=== PATIENT | male | born 1975 | race Caucasian/White ===

== ENCOUNTER 2017-06-01 09:26 | Day surgery (SDC) | payer OTHER ==
[2017-06-01] VITALS (8 sets, daily range): BP systolic 106–137; BP diastolic 62–85; PULSE 63–84; RESP 14–20; Ht 180.3 cm; Wt 73.0 kg
[~2017-06-01] VITALS: Ht 180.3 cm; Wt 73.0 kg
[~2017-06-01 09:26] MED LIST: ONDANSETRON 4 MG INJ ONE
[2017-06-01] MEDS ORDERED: IBUP800T25 PO (09:51)
[2017-06-01 10:19] LABS: BASOPHIL # 0.1 10^3/ul (0.0-0.1); BASOPHILS % 1.3 % (0.0-2.0); EOSINOPHILS # 0.1 10^3/ul (0.0-0.5); EOSINOPHILS % 1.6 % (0.0-7.0); HEMATOCRIT 37.1 % (42.0-52.0); HEMOGLOBIN 12.9 g/dl (14.0-18.0); LYMPHOCYTES % 32.6 % (15.0-51.0); MEAN CORPUSCULAR HEMOGLOBIN 32.8 pg (29.0-33.0); MEAN CORPUSCULAR HGB CONC 34.8 g/dl (32.0-37.0); MEAN CORPUSCULAR VOLUME 94.4 fl (82.0-101.0); MEAN PLATELET VOLUME 11.4 fl (7.4-10.4); MONOCYTE # 0.5 10^3/ul (0.3-0.9); MONOCYTES % 7.5 % (0.0-11.0); NEUTROPHIL # 3.6 10^3/ul (1.6-7.5); PLATELET COUNT 203 10^3/UL (140-415); RED BLOOD COUNT 3.93 10^6/ul (4.70-6.10); RED CELL DISTRIBUTION WIDTH 11.9 % (11.5-14.5); WHITE BLOOD COUNT 6.3 10^3/ul (4.8-10.8)
[2017-06-01 10:41] LABS: INR 0.93; PROTIME 12.5 Sec (12.2-14.2)
[2017-06-01 10:42] LABS: PARTIAL THROMBOPLASTIN TIME 30.9 Sec (25.0-35.0)
[2017-06-01] MEDS ORDERED: BUPIVACAINE 0.5%/EPI (SDV) 30 ML INJ ONE (11:38)
[2017-06-01] MEDS ORDERED: BUPIVACAINE LIPOSOME/PF 266 MG/20 ML VIAL INFIL SCH (12:00)
[2017-06-01] MEDS ORDERED: morphine 2 MG INJ IV PRN (12:00)
[2017-06-01] MEDS ORDERED: ONDANSETRON 4 MG INJ IV PRN ×2 (12:00→13:00)
[2017-06-01] MEDS ORDERED: HYDROCODONE/APAP (5/325) TAB PO PRN (12:00)
[2017-06-01] MEDS ORDERED: ROCURONIUM 50 MG INJ ONE (12:03)
[2017-06-01] MEDS ORDERED: LIDOCAINE 2% (SDV) 5 ML INJ ONE (12:03)
[2017-06-01] MEDS ORDERED: PROPOFOL 20 ML ONE (12:03)
[2017-06-01] MEDS ORDERED: DEXAMETHASONE 4 MG/ML 1 ML INJ ONE (12:03)
--- NOTE | 2017-06-01 12:04 | OPR ---
Date/Time of Note Date/Time of Note DATE: 06/01/17 TIME: 11:53 Operative Report Free Text/Dictation Plastic Surgery Operative Report Preoperative diagnosis: neck melanoma Postoperative diagnosis: neck melanoma Procedure: excision of neck melanoma with flap reconstruction Surgeon: prateek Metzger.: n/a Anesthesia: general EBL: min IV fluids: per flow sheet Findings: n/a Complications: none Dispo: home Indications for procedure: 41 yo M presents for neck melanoma excision and flap reconstruction. The risks, benefits, alternatives of performing this procedure was discussed with the patient including the risks of bleeding, infection, wound healing problems, lesion recurrence, need for re-excision, and the patient states that he understands these risks and would like to proceed with the procedure. All questions were answered, no guarantees were given with regards to the outcome of the procedure. Description of procedure: A 0.5mm margin was marked around the lesion and then a total of 10cc of 0.25% marcaine with 1:200,000 epi were injected into the periphery of the incision. Next, the 15 blade was used to incise around the marked area, and then the electrocautery was used to dissect to the platysma and excise the specimen off the platysma. A short stitch was placed superior, a long stitch was placed left lateral. Specimen size was 7cm. Next, a superiorly based flap was designed to advance to take the tension off of the defect and closed without distorting surrounding tissues. This was marked with a marking pen and was then incised with a 15 blade. The flap was undermined with the electrocautery. The flap was then advanced into the defect. It sat in place without undue tension and a small back cut was made to facilitate advancement. Hemostasis was achieved with electrocautery. The wound was irrigated with antibiotic irrigation. Therefore, the flap was inset with 4-0 Vicryl sutures and 4-0 Monocryl sutures. 20cc of exparel were injected into the periphery of the incision to help with post op pain control. Total flap size was 7x3cm . The patient tolerated procedure well, there were no complications, follow-up information and wound care instructions were given Preoperative Diagnosis neck melanoma in situ Postoperative Diagnosis same Surgeon see signature line Bioinformatics Engineer n/a Anesthesia Type: general Estimated Blood Loss: minimal Transfusion none Specimen neck melanoma, short stitch superior, long stitch lateral Grafts/Implants none Complications none Procedure Description see free text LARISSA IRAHETA MD Jun 01, 2017 12:04
[2017-06-01] MEDS ORDERED: CEFAZOLIN 1 GM INJ ONE (12:10)
--- NOTE | 2017-06-01 12:46 | HPN ---
Date/Time of Note Date/Time of Note DATE: 06/01/17 TIME: 12:46 Interval H&P Admission Note Pt. seen H&P reviewed: No system changes LARISSA IRAHETA MD Jun 01, 2017 12:46
[2017-06-01] MEDS ORDERED: KETOROLAC 30 MG INJ IV PRN (13:00)
[2017-06-01] MEDS ORDERED: DIPHENHYDRAMINE 50 MG INJ IV PRN (13:00)
[2017-06-01] MEDS ORDERED: HYDROmorphONE (0.2 MG/ML) 10ML SYG IV PRN ×3 (13:00)
[2017-06-01] MEDS ORDERED: EPHEDrine SULFATE 50 MG/5 ML SYG IV PRN (13:00)
[2017-06-01] MEDS ORDERED: OXYCODONE/ACETAMINOPHEN (5/325) TAB PO PRN ×2 (13:00)
[2017-06-01] MEDS ORDERED: MEPERIDINE 25 MG INJ IV PRN (13:00)
[2017-06-01] MEDS ORDERED: METOCLOPRAMIDE 10 MG INJ IV PRN (13:00)
[2017-06-01] MEDS ORDERED: hydrALAzine 20 MG INJ IV PRN (13:00)
[2017-06-01] MEDS ORDERED: LABETALOL HCL 20MG INJ IV PRN (13:00)
[2017-06-01] MEDS ORDERED: FENTAnyl 50 MCG/ML VIAL IV PRN ×3 (13:00)
--- NOTE | 2017-06-02 18:30 | RADRPT ---
Vent Rate: 82 bpm RR Interval: 0 msec GA Interval: 170 msec QRS Duration: 84 msec QT Interval: 356 msec QTC Interval: 415 msec P-R-T [place]: 53 - 70 - 61 degrees Normal sinus rhythm Normal ECG Electronically Signed By: Lonnie Glez [id number]
== END 2017-06-01 13:55 | disposition home or self-care (01) ==
LOC: SDS 09:26
PROVIDERS: ATTEND Surgery Plastic and Reconstructive Surgery
DX: C43.4 Malignant melanoma of scalp and neck (principal)
CPT/HCPCS: 85025; 85610; 85730; 88305; 93005; C9290; J0690; J1100; J2405; J3010